=== PATIENT | female | born 1990 | race Two or more races ===

== ENCOUNTER → 2019-03-13 | Outpatient (REF) | payer OTHER ==
[2019-03-13 12:52] LABS: HEMATOCRIT 38.1 % (36.0-47.0); HEMOGLOBIN 12.5 g/dl (12.0-15.5); MEAN CORPUSCULAR HEMOGLOBIN 32.9 pg (27.0-33.0); MEAN CORPUSCULAR HGB CONC 32.8 g/dl (32.0-36.5); MEAN CORPUSCULAR VOLUME 100.3 fl (80.0-96.0); PLATELET COUNT, AUTOMATED 207 10^3/uL (150-450); WHITE BLOOD COUNT 6.3 10^3/uL (4.0-10.0)
[2019-03-13 13:02] LABS: BLOOD UREA NITROGEN 10 MG/DL (7-18); CALCIUM LEVEL 9.4 MG/DL (8.5-10.1); CARBON DIOXIDE LEVEL 32 MEQ/L (21-32); CHLORIDE LEVEL 106 MEQ/L (98-107); CHOLESTEROL LEVEL 149 MG/DL (<200); CREATININE FOR GFR 0.73 MG/DL (0.55-1.30); GLOMERULAR FILTRATION RATE > 60.0 (>60); GLUCOSE, FASTING 82 MG/DL (70-100); HDL CHOLESTEROL 56 MG/DL (>40); LDL CHOLESTEROL 84 MG/DL (<100); NON-HDL-C 93 MG/DL; POTASSIUM SERUM 4.3 MEQ/L (3.5-5.1); SODIUM LEVEL 142 MEQ/L (136-145); TRIGLYCERIDES LEVEL 45 MG/DL (<150)
== END ==
LOC: M SFHCPLAZ 09:46
PROVIDERS: ATTEND Nurse Practitioner Family
DX: Z13.228 Encounter for screening for other metabolic disorders (principal)

== ENCOUNTER → 2019-03-27 | Outpatient (REF) | payer OTHER | LOC: M SFHCPLAZ 15:29 | PROVIDERS: ATTEND Nurse Practitioner Family | DX: Z12.4 Encounter for screening for malignant neoplasm of cervix (principal); N76.0 Acute vaginitis | CPT/HCPCS: G0123; G0463 ==

== ENCOUNTER → 2019-10-25 | Outpatient (CLI) | payer OTHER ==
[2019-10-25 13:36] LABS: BASO % 0.2 % (0.0-1.0); EOS # 0.2 10^3/uL (0.0-0.5); EOS % 2.6 % (0.0-3.0); HEMATOCRIT 40.2 % (36.0-47.0); HEMOGLOBIN 13.2 g/dl (12.0-15.5); LYMPH % 24.1 % (24.0-44.0); MEAN CORPUSCULAR HGB CONC 32.8 g/dl (32.0-36.5); MEAN CORPUSCULAR VOLUME 97.6 fl (80.0-96.0); MONO # 0.7 10^3/uL (0.0-0.8); MONO % 8.6 % (0.0-5.0); NEUTROPHILS # 5.2 10^3/uL (1.5-8.5); NEUTROPHILS % 64.1 % (36.0-66.0); PLATELET COUNT, AUTOMATED 224 10^3/uL (150-450); RED BLOOD COUNT 4.12 10^6/uL (4.00-5.40); WHITE BLOOD COUNT 8.2 10^3/uL (4.0-10.0)
[2019-10-25 13:46] LABS: ALBUMIN 4.3 GM/DL (3.2-5.2); ALT/SGPT 32 U/L (12-78); BILIRUBIN,TOTAL 0.7 MG/DL (0.2-1.0); BLOOD UREA NITROGEN 12 MG/DL (7-18); CALCIUM LEVEL 9.4 MG/DL (8.5-10.1); CARBON DIOXIDE LEVEL 26 MEQ/L (21-32); CHLORIDE LEVEL 109 MEQ/L (98-107); CREATININE FOR GFR 0.82 MG/DL (0.55-1.30); FREE T4 1.05 NG/DL (0.76-1.46); GLOMERULAR FILTRATION RATE > 60.0 (>60); GLUCOSE, FASTING 85 MG/DL (70-100); SODIUM LEVEL 142 MEQ/L (136-145); THYROID STIMULATING HORMONE 0.773 uIU/ML (0.358-3.740); TOTAL PROTEIN 7.7 GM/DL (6.4-8.2)
== END ==
LOC: M WUC 09:43
PROVIDERS: ATTEND Physician Assistant
DX: R42 Dizziness and giddiness (principal)

== ENCOUNTER → 2020-11-20 | Outpatient (REF) | payer OTHER | LOC: M WUC 18:28 | PROVIDERS: ATTEND Physician Assistant | DX: R30.0 Dysuria (principal) ==

== ENCOUNTER → 2021-01-09 | Outpatient (CLI) | payer OTHER | LOC: M LABSMTC 10:22 | PROVIDERS: ATTEND Anesthesiology | DX: Z01.818 Encounter for other preprocedural examination (principal); Z11.52 Encounter for screening for COVID-19 ==

== ENCOUNTER 2021-01-13 13:25 | Day surgery (SDC) | payer OTHER ==
[~2021-01-13] VITALS: Ht 172.7 cm; Wt 59.8 kg
[~2021-01-13 13:25] MED LIST: LR 1,000 ML IV ONE
[2021-01-13 13:51] LABS: HEMOGLOBIN 14.1 g/dl (12.0-15.5)
[2021-01-13 14:20] LABS: HCG, SERUM QUALITATIVE NEGATIVE (NEGATIVE)
[2021-01-13] MEDS ORDERED: IBUP80TA PO (15:18)
[2021-01-13] MEDS ORDERED: COLA100C5 PO (15:18)
[2021-01-13] MEDS ORDERED: PERC5TAB12 PO (15:18)
[2021-01-13] MEDS ORDERED: propofoL 200 MG/20 ML VIAL As Ordered ONE (15:57)
[2021-01-13] MEDS ORDERED: ROCURONIUM BROMIDE 50 MG/5 ML VIAL As Ordered ONE (15:57)
[2021-01-13] MEDS ORDERED: fentaNYL 250 MCG/5 ML INJECTION (J3010) As Ordered ONE (15:57)
[2021-01-13] MEDS ORDERED: LIDOCAINE 2% 100MG/5ML SDV (FOR ANES.) As Ordered ONE (15:57)
[2021-01-13] MEDS ORDERED: MIDAZOLAM INJ 2MG/2ML VIAL (J2250 PER 1MG) As Ordered ONE (15:58)
[2021-01-13] MEDS ORDERED: BUPIVACAINE HCL 0.25% 30ML VIAL As Ordered ONE (16:38)
[2021-01-13] MEDS ORDERED: SUGAMMADEX SODIUM 500 MG/5 ML VIAL (BRIDION) As Ordered ONE (17:08)
[2021-01-13] MEDS ORDERED: ONDANSETRON 4MG/2ML VIAL As Ordered ONE (17:08)
[2021-01-13] MEDS ORDERED: KETOROLAC 60MG 2ML VIAL As Ordered ONE (17:08)
[2021-01-13] MEDS ORDERED: dexameTHASONE 4 MG/ML 1ML VIAL (J1100 PER 1MG) As Ordered ONE (17:08)
[2021-01-13] MEDS ORDERED: ACETAMINOPHEN 1000MG 100ML IV BTL (OFIRMEV) (J0131 PER 10MG) As Ordered ONE (17:26)
[2021-01-13] MEDS ORDERED: IBUPROFEN 800 MG TAB PO PRN (18:10)
[2021-01-13] MEDS ORDERED: LR 1,000 ML IV SCH (18:10)
[2021-01-13] MEDS ORDERED: METOCLOPRAMIDE INJ 10MG/2ML VIAL (J2765 PER 1) IV PRN (18:10)
[2021-01-13] MEDS ORDERED: oxyCODONE 5MG TAB PO PRN (18:10)
[2021-01-13] MEDS ORDERED: PERCOCET 5MG/325MG TAB PO PRN (18:10)
[2021-01-13] MEDS ORDERED: ONDANSETRON 4MG/2ML VIAL IV PRN (18:10)
[2021-01-13] MEDS ORDERED: fentaNYL 100 MCG/2 ML INJECTION (J3010) IV PRN (18:10)
[2021-01-13] MEDS ORDERED: HYDROMORPHONE HCL 0.5 MG/ 0.5 ML SYRINGE (J1170 PER 1) IV PRN (18:10)
[2021-01-13 19:15] VITALS: BP 115/75
[2021-01-13] MEDS ORDERED: DOCUSATE SODIUM 100MG CAPSULE PO SCH (21:00)
--- NOTE | 2021-01-14 09:28 | RO ---
OPERATIVE NOTE DATE OF OPERATION: 01/13/2021 PREOPERATIVE DIAGNOSIS: Satisfied parity. POSTOPERATIVE DIAGNOSIS: Satisfied parity. PROCEDURE PERFORMED: Laparoscopic bilateral salpingectomy. STAFF SURGEON: Nettie Brown MD LINOTYPE MACHINIST APPRENTICE: residential pest control technician. CLINICAL SERVICE: Gynecology. ANESTHESIA: MATERIAL FORWARDED TO THE LAB FOR EXAMINATION: Bilateral fallopian tubes. INDICATIONS FOR OPERATION: Celia is a 30-year-old G1, P1,0,0,1 who endorsed satisfied parity, desiring permanent sterilization. We discussed all options for contraception in the office and she stated she was 100% sure that she is done with childbearing and desired permanent sterilization. DESCRIPTION OF FINDINGS: Laparoscopic findings included normal appearing uterus, fallopian tubes, ovaries, gallbladder, liver edge, appendix and overall pelvis was normal in appearance. INFECTIION CLASSIFICATION: 2. ESTIMATED BLOOD LOSS: 10 mL. URINE OUTPUT: 300 mL. IV FLUIDS: 1300 mL lactated Ringer's. DESCRIPTION OF PROCEDURE: After obtaining informed consent, the patient was taken to the operating room, general endotracheal anesthesia was established. She was placed in low lithotomy position. Patient was prepped and draped in usual sterile fashion. The patient was placed in Trendelenburg position, Lockhart catheter was placed, bivalve speculum was placed in the vagina and visualization of the cervix was obtained. Anterior lip of the cervix was grasped with single tooth tenaculum. Uterus sounded to 6 cm. Hulka uterine manipulator was placed through the cervix to the uterus and then the tenaculum was removed with site hemostasis noted and the bivalve speculum was removed. The patient was taken out of Trendelenburg position. 5 mm incision was made in the infraumbilical fold beneath the subcutaneous tissue after anesthetizing with 0.25% Marcaine. Corazon clamp was used to spread the subcutaneous tissue. Lower abdominal wall was manually grabbed and lifted up. Optiview trocar was placed at 90 degree angle. Laparoscope was advanced through the port and intraabdominal placement was confirmed without injury noted below the point of entry. Continuous flow CO2 began to establish pneumoperitoneum at 15 mmHg pressure. At that point I placed two more trocars, both on the right side in the right lower quadrant and upper right quadrant, both 5 mm in size and after anesthetizing with 0.25% Marcaine 5 mm trocars were placed under direct visualization. Pelvic and abdominal surveys were conducted beginning at anterior cul-de-sac, anterior portion of the uterus which were normal in appearance. Left and right fallopian tubes, round ligaments, broad ligaments, and ovaries were observed and normal appearance. Posterior cul-de-sac was observed to be normal as well as ovarian fossae. Survey of the upper abdomen revealed normal appearing appendix, liver edge and gallbladder. At that point the salpingectomy was performed first on the right side followed by the left in same manner. The LigaSure device was used to excise the fallopian tubes, undermining them very close beneath the fallopian tubes with conscientious distance away from the ovaries so as to not interrupt blood supply to the ovary. Once they were excised they were removed from the body out of the trocar in total and the pelvis was observed. Laparoscopic photos were taken. There was no bleeding noted and at that point the right trocars were removed with direct visualization. They were observed to be hemostatic. The pneumoperitoneum was released prior to removal of the umbilical ports. Incisions were reapproximated with 4-0 Monocryl and Dermabond. All instruments were removed from the vagina and hemostasis was noted. The patient was returned to the supine position. All counts were correct x2. The patient tolerated the procedure well and was awakened from general anesthesia and taken to the recovery room in stable condition.
== END 2021-01-13 19:20 | disposition home or self-care (01) ==
LOC: M SDC 13:25
PROVIDERS: ATTEND Obstetrics & Gynecology
DX: Z30.2 Encounter for sterilization (principal); Z86.16 Personal history of COVID-19; Z88.2 Allergy status to sulfonamides
CPT/HCPCS: 36415; 58661; 84703; 85014; 85018; 86850; 86900; 86901; 88302; J0131; J1100; J1885; J2250; J2405; J3010

== ENCOUNTER → 2021-05-03 | Outpatient (CLI) | payer OTHER ==
[~2021-05-03] MED LIST changes: +COLA100C5 PO; +IBUP80TA PO; -LR 1,000 ML IV ONE; +PERC5TAB12 PO
--- NOTE | 2021-05-04 16:15 | REP ---
INDICATION: FIBROCYSTIC CHANGES OF LEFT BREAST. COMPARISON: None TECHNIQUE: Real-time sonographic evaluation of left breast performed. FINDINGS: In the region of firmness between 12 and 3 o'clock of the left breast no cystic or solid nodule is seen. Incidental note is made of a lobulated hypoechoic structure at 5 o'clock measuring 12 x 7 x 14 mm, KP a value 25.4. This is approximately 3.5 cm from the nipple. At 6 o'clock there is a 4 x 3 x 5 mm hypoechoic nodule, average KP a value 40, 4 cm from the nipple. IMPRESSION: BIRADS/ACR category 4, suspicious. Two hypoechoic nodules identified at the 5 o'clock and 6 o'clock positions. Recommend ultrasound-guided biopsy. RECOMMENDATION: Ultrasound-guided biopsy recommended at 2 sites in the left breast.. <Electronically signed by Trenton Maldonado > 05/04/21 [id number]
== END ==
LOC: M WHC 13:24
PROVIDERS: ATTEND Family Medicine
DX: N60.12 Diffuse cystic mastopathy of left breast (principal); N63.20 Unspecified lump in the left breast, unspecified quadrant

== ENCOUNTER → 2021-05-23 | Outpatient (CLI) | payer OTHER | LOC: M WHCPRO 11:06 | PROVIDERS: ATTEND Family Medicine | DX: R92.8 Other abnormal and inconclusive findings on diagnostic imaging of breast (principal); Z53.8 Procedure and treatment not carried out for other reasons ==

== ENCOUNTER → 2021-06-08 | Outpatient (CLI) | payer OTHER ==
[2021-06-08 15:45] VITALS: BP 104/76
--- NOTE | 2021-06-08 15:54 | REP ---
INDICATION: 2 ABNORMAL NODULES ON LEFT BREAST U/S. COMPARISON: Ultrasound 05/03/2021. TECHNIQUE: ML and CC views left breast. FINDINGS: Following ultrasound-guided biopsy of 2 lesions in the left breast, imaging shows 2 biopsy marking clips in the lower inner left breast. IMPRESSION: Ultrasound-guided biopsy of 2 lesions in the left breast with marker clip placement. RECOMMENDATION: Clinical follow-up. <Electronically signed by Trenton Maldonado > 06/08/21 [id number]
--- NOTE | 2021-06-08 18:33 | REP ---
INDICATION: 2 ABNORMAL NODULES ON LEFT BREAST. COMPARISON: None. TECHNIQUE: The procedure was performed by ANGEL LUIS Myles, under the direct supervision of Dr. Maldonado. The risks and benefits of the procedure were explained to the patient and an informed consent was obtained both verbally and written. Directly prior to the start of the procedure a formal time-out was completed in the procedure room. FINDINGS: The left breast mass at 5 o'clock position was localized using ultrasound guidance.. The skin was prepped and draped in a sterile fashion. Ten mL of buffered lidocaine was used as a local anesthetic. Using ultrasound guidance a 14 gauge Bard marquee needle biopsy system was inserted and advanced into the left breast mass at 5 o'clock position. Five core biopsy specimens were obtained. A shaped 3 marker clip was placed at the biopsy site. The left breast mass at 6 o'clock position was localized using ultrasound guidance.. The skin was prepped and draped in a sterile fashion. Ten ML of buffered lidocaine was used as a local anesthetic. Using ultrasound guidance a 14 gauge Bard marquee needle biopsy system was inserted and advanced into the left breast mass at 6 o'clock position. Five core biopsy specimens were obtained. A shaped 4 marker clip was placed at the biopsy site. The patient tolerated the procedure well and there were no immediate complications. After the appropriate amount of monitored convalescence the patient was discharged from the department. IMPRESSION: Ultrasound-guided biopsy and micro clip placement of the left breast x2. <Electronically signed by Mary Mcgill > 06/08/21 [id number] <Electronically signed by Trenton Maldnoado > 06/08/21 [id number]
== END ==
LOC: M WHCPRO 13:48
PROVIDERS: ATTEND Family Medicine
DX: R92.8 Other abnormal and inconclusive findings on diagnostic imaging of breast (principal)
CPT/HCPCS: 19083; 19084; 77065; 88305; G0279

== ENCOUNTER 2022-02-28 08:15 | Inpatient (IN) | payer OTHER ==
[~2022-02-28] VITALS: Ht 170.2 cm; Wt 64.1 kg
[2022-02-28] MEDS ORDERED: ACETAMINOPHEN 500 MG TAB PO ONE (08:40)
[2022-02-28] MEDS ORDERED: ONDANSETRON 4MG ORAL DISINTEGRATING TAB PO ONE (08:40)
[2022-02-28] MEDS ORDERED: IBUPROFEN 800 MG TAB PO ONE (09:35)
[2022-02-28] MEDS ORDERED: NS 1,000 ML IV ONE ×2 (09:35→10:45)
[2022-02-28 09:55] LABS: BASO % 0.2 % (0.0-1.0); HEMATOCRIT 33.8 % (36.0-47.0); HEMOGLOBIN 11.6 g/dl (12.0-15.5); LYMPH # 0.6 10^3/uL (1.5-5.0); LYMPH % 3.3 % (24.0-44.0); MEAN CORPUSCULAR HEMOGLOBIN 32.4 pg (27.0-33.0); MEAN CORPUSCULAR HGB CONC 34.3 g/dl (32.0-36.5); MEAN CORPUSCULAR VOLUME 94.4 fl (80.0-96.0); MONO % 9.3 % (2.0-8.0); NEUTROPHILS # 15.4 10^3/uL (1.5-8.5); NEUTROPHILS % 86.4 % (36.0-66.0); PLATELET COUNT, AUTOMATED 186 10^3/uL (150-450); RED BLOOD COUNT 3.58 10^6/uL (4.00-5.40); WHITE BLOOD COUNT 17.8 10^3/uL (4.0-10.0)
[2022-02-28 10:07] LABS: BACTERIA, URINE LARGE AMOUNT; RBC, URINE TNTC /hpf (0-3); SQUAMOUS EPITHELIAL CELL URINE LARGE AMOUNT /hpf (SMALL AMT)
[2022-02-28] MEDS ORDERED: cefTRIAXone SOD 1 GM in D5W MINI-BAG PLUS 50 ML IV ONE (10:20)
[2022-02-28 10:31] LABS: ALBUMIN 3.5 GM/DL (3.2-5.2); ALT/SGPT 18 U/L (12-78); BILIRUBIN,DIRECT 0.4 MG/DL (0.0-0.2); BILIRUBIN,TOTAL 1.1 MG/DL (0.2-1.0); BLOOD UREA NITROGEN 9 MG/DL (7-18); CALCIUM LEVEL 9.3 MG/DL (8.5-10.1); CARBON DIOXIDE LEVEL 22 MEQ/L (21-32); CHLORIDE LEVEL 103 MEQ/L (98-107); CREATININE FOR GFR 0.71 MG/DL (0.55-1.30); GLOMERULAR FILTRATION RATE > 60.0 (>60); GLUCOSE, FASTING 99 MG/DL (70-100); LIPASE 159 U/L (73-393); POTASSIUM SERUM 3.1 MEQ/L (3.5-5.1); SODIUM LEVEL 134 MEQ/L (136-145); TOTAL PROTEIN 6.9 GM/DL (6.4-8.2)
[2022-02-28 10:32] LABS: MONO # 1.7 10^3/uL (0.0-0.8)
[2022-02-28] MEDS ORDERED: ISOVUE-370 76% 100ML VIAL As Ordered ONE (10:43)
[2022-02-28] MEDS ORDERED: ONDANSETRON 4MG 2ML VIAL IV PRN (12:35)
[2022-02-28] MEDS ORDERED: HOME MED LIST COMPLETE! XX SCH (13:45)
[2022-02-28 15:13] VITALS: BP 109/73
[2022-02-28] MEDS: ACETAMINOPHEN TAB 650MG DOSE (2X325MG) PO PRN (17:22)
[2022-02-28] MEDS: NS 1,000 ML IV SCH (17:23)
[2022-02-28] MEDS: IBUPROFEN 800 MG TAB PO PRN (19:00)
[2022-02-28 20:00] VITALS: BP 105/67
[2022-02-28] MEDS: OMEPRAZOLE 20MG CAP PO SCH (20:09)
[2022-02-28] MEDS ORDERED: POTASSIUM CHLORIDE 10MEQ SR TABLET PO ONE (22:00)
[2022-03-01] MEDS: IBUPROFEN 800 MG TAB PO PRN ×3 (03:17→21:11)
[2022-03-01] MEDS: ACETAMINOPHEN TAB 650MG DOSE (2X325MG) PO PRN ×3 (04:18→20:01)
[2022-03-01] MEDS: NS 1,000 ML IV SCH ×2 (04:57→19:07)
[2022-03-01 05:00] VITALS: BP 106/67
[2022-03-01 06:32] LABS: HEMATOCRIT 30.3 % (36.0-47.0); MEAN CORPUSCULAR HEMOGLOBIN 32.3 pg (27.0-33.0); MEAN CORPUSCULAR VOLUME 97.7 fl (80.0-96.0); PLATELET COUNT, AUTOMATED 161 10^3/uL (150-450); WHITE BLOOD COUNT 17.2 10^3/uL (4.0-10.0)
[2022-03-01 07:17] LABS: BLOOD UREA NITROGEN 7 MG/DL (7-18); CALCIUM LEVEL 8.4 MG/DL (8.5-10.1); CARBON DIOXIDE LEVEL 21 MEQ/L (21-32); CHLORIDE LEVEL 109 MEQ/L (98-107); CREATININE FOR GFR 0.56 MG/DL (0.55-1.30); GLOMERULAR FILTRATION RATE > 60.0 (>60); GLUCOSE, FASTING 78 MG/DL (70-100); MAGNESIUM LEVEL 1.9 MG/DL (1.8-2.4); POTASSIUM SERUM 3.4 MEQ/L (3.5-5.1); SODIUM LEVEL 139 MEQ/L (136-145)
[2022-03-01] MEDS ORDERED: POTASSIUM CHLORIDE 10MEQ SR TABLET PO ONE (08:00)
[2022-03-01 08:07] LABS: ANISOCYTOSIS 1+; LYMPHOCYTES 7 % (16-44); MONOCYTES 3 % (0-5); NEUTROPHILS 78 % (28-66); PLATELET ESTIMATE NORMAL (NORMAL)
[2022-03-01] MEDS: cefTRIAXone SOD 1 GM in D5W MINI-BAG PLUS 50 ML IV SCH (11:36)
[2022-03-01 14:00] VITALS: BP 107/69
[2022-03-01] MEDS ORDERED: oxyCODONE 5MG TAB PO ONE (14:45)
[2022-03-01] MEDS: OMEPRAZOLE 20MG CAP PO SCH (20:01)
[2022-03-01 20:04] VITALS: BP 116/77
[2022-03-02] MEDS: ACETAMINOPHEN TAB 650MG DOSE (2X325MG) PO PRN ×3 (03:21→22:26)
[2022-03-02 05:34] VITALS: BP 103/66
[2022-03-02] MEDS: IBUPROFEN 800 MG TAB PO PRN ×3 (05:37→21:12)
[2022-03-02 07:05] LABS: HEMATOCRIT 30.5 % (36.0-47.0); HEMOGLOBIN 10.3 g/dl (12.0-15.5); MEAN CORPUSCULAR HEMOGLOBIN 32.9 pg (27.0-33.0); MEAN CORPUSCULAR HGB CONC 33.8 g/dl (32.0-36.5); MEAN CORPUSCULAR VOLUME 97.4 fl (80.0-96.0); PLATELET COUNT, AUTOMATED 161 10^3/uL (150-450); RED BLOOD COUNT 3.13 10^6/uL (4.00-5.40); WHITE BLOOD COUNT 14.6 10^3/uL (4.0-10.0)
[2022-03-02 07:42] LABS: BLOOD UREA NITROGEN 3 MG/DL (7-18); CALCIUM LEVEL 8.4 MG/DL (8.5-10.1); CARBON DIOXIDE LEVEL 24 MEQ/L (21-32); CHLORIDE LEVEL 107 MEQ/L (98-107); CREATININE FOR GFR 0.49 MG/DL (0.55-1.30); GLOMERULAR FILTRATION RATE > 60.0 (>60); GLUCOSE, FASTING 82 MG/DL (70-100); POTASSIUM SERUM 3.4 MEQ/L (3.5-5.1); SODIUM LEVEL 137 MEQ/L (136-145)
[2022-03-02 08:13] LABS: ATYPICAL LYMPH 1 % (0-5); EOSINOPHILS 1 % (0-3); LYMPHOCYTES 10 % (16-44); MONOCYTES 4 % (0-5); NEUTROPHILS 74 % (28-66)
[2022-03-02 08:16] LABS: ANISOCYTOSIS 1+; PLATELET ESTIMATE NORMAL (NORMAL)
[2022-03-02] MEDS: NS 1,000 ML IV SCH (08:41)
[2022-03-02 10:00] VITALS: BP 103/68
[2022-03-02] MEDS ORDERED: POTASSIUM CHLORIDE 10MEQ SR TABLET PO ONE (11:00)
[2022-03-02] MEDS: cefTRIAXone SOD 1 GM in D5W MINI-BAG PLUS 50 ML IV SCH (11:19)
[2022-03-02 14:00] VITALS: BP 106/62
[2022-03-02 18:00] VITALS: BP 110/68
[2022-03-02 20:00] VITALS: BP 122/78
[2022-03-02] MEDS: OMEPRAZOLE 20MG CAP PO SCH (21:12)
[2022-03-03 06:00] VITALS: BP 118/77
[2022-03-03 06:58] LABS: BASO % 0.2 % (0.0-1.0); EOS % 0.3 % (0.0-3.0); HEMATOCRIT 32.8 % (36.0-47.0); LYMPH % 8.5 % (24.0-44.0); MEAN CORPUSCULAR HEMOGLOBIN 32.4 pg (27.0-33.0); MEAN CORPUSCULAR HGB CONC 33.5 g/dl (32.0-36.5); MEAN CORPUSCULAR VOLUME 96.8 fl (80.0-96.0); MONO % 13.4 % (2.0-8.0); NEUTROPHILS # 8.8 10^3/uL (1.5-8.5); NEUTROPHILS % 77.1 % (36.0-66.0); PLATELET COUNT, AUTOMATED 209 10^3/uL (150-450); RED BLOOD COUNT 3.39 10^6/uL (4.00-5.40); WHITE BLOOD COUNT 11.4 10^3/uL (4.0-10.0)
[2022-03-03 07:28] LABS: BLOOD UREA NITROGEN 5 MG/DL (7-18); CALCIUM LEVEL 9.1 MG/DL (8.5-10.1); CARBON DIOXIDE LEVEL 25 MEQ/L (21-32); CHLORIDE LEVEL 105 MEQ/L (98-107); CREATININE FOR GFR 0.56 MG/DL (0.55-1.30); GLOMERULAR FILTRATION RATE > 60.0 (>60); GLUCOSE, FASTING 80 MG/DL (70-100); POTASSIUM SERUM 3.5 MEQ/L (3.5-5.1); SODIUM LEVEL 137 MEQ/L (136-145)
[2022-03-03 07:29] LABS: MONO # 1.5 10^3/uL (0.0-0.8)
[2022-03-03] MEDS: ACETAMINOPHEN TAB 650MG DOSE (2X325MG) PO PRN (08:03)
[2022-03-03 09:30] VITALS: BP 105/64
[2022-03-03] MEDS: cefTRIAXone SOD 1 GM in D5W MINI-BAG PLUS 50 ML IV SCH (11:31)
[2022-03-03 14:00] VITALS: BP 118/71
[2022-03-03] MEDS: IBUPROFEN 800 MG TAB PO PRN (17:01)
[2022-03-03 19:35] VITALS: BP 116/71
[2022-03-03] MEDS: OMEPRAZOLE 20MG CAP PO SCH (19:56)
[2022-03-04 05:44] VITALS: BP 111/71
[2022-03-04 07:14] LABS: BASO % 0.2 % (0.0-1.0); EOS # 0.1 10^3/uL (0.0-0.5); HEMATOCRIT 33.1 % (36.0-47.0); LYMPH # 1.1 10^3/uL (1.5-5.0); LYMPH % 13.4 % (24.0-44.0); MEAN CORPUSCULAR HEMOGLOBIN 31.5 pg (27.0-33.0); MEAN CORPUSCULAR HGB CONC 33.2 g/dl (32.0-36.5); MEAN CORPUSCULAR VOLUME 94.8 fl (80.0-96.0); MONO # 1.4 10^3/uL (0.0-0.8); MONO % 17.6 % (2.0-8.0); NEUTROPHILS # 5.5 10^3/uL (1.5-8.5); NEUTROPHILS % 66.9 % (36.0-66.0); PLATELET COUNT, AUTOMATED 233 10^3/uL (150-450); RED BLOOD COUNT 3.49 10^6/uL (4.00-5.40); WHITE BLOOD COUNT 8.2 10^3/uL (4.0-10.0)
[2022-03-04 07:48] LABS: BLOOD UREA NITROGEN 6 MG/DL (7-18); CALCIUM LEVEL 9.2 MG/DL (8.5-10.1); CARBON DIOXIDE LEVEL 27 MEQ/L (21-32); CHLORIDE LEVEL 103 MEQ/L (98-107); CREATININE FOR GFR 0.56 MG/DL (0.55-1.30); GLOMERULAR FILTRATION RATE > 60.0 (>60); GLUCOSE, FASTING 86 MG/DL (70-100); POTASSIUM SERUM 3.6 MEQ/L (3.5-5.1); SODIUM LEVEL 137 MEQ/L (136-145)
[2022-03-04] MEDS: cefTRIAXone SOD 1 GM in D5W MINI-BAG PLUS 50 ML IV SCH (12:05)
[2022-03-04 14:00] VITALS: BP 110/70
[2022-03-04] MEDS: OMEPRAZOLE 20MG CAP PO SCH (20:33)
[2022-03-04 21:00] VITALS: BP 110/71
[2022-03-05 06:00] VITALS: BP 111/68
[2022-03-05 06:14] LABS: BASO # 0.1 10^3/uL (0.0-0.2); BASO % 0.8 % (0.0-1.0); EOS # 0.1 10^3/uL (0.0-0.5); HEMATOCRIT 33.1 % (36.0-47.0); LYMPH # 1.5 10^3/uL (1.5-5.0); LYMPH % 22.9 % (24.0-44.0); MEAN CORPUSCULAR HEMOGLOBIN 32.3 pg (27.0-33.0); MEAN CORPUSCULAR HGB CONC 33.2 g/dl (32.0-36.5); MEAN CORPUSCULAR VOLUME 97.1 fl (80.0-96.0); MONO # 1.1 10^3/uL (0.0-0.8); MONO % 16.2 % (2.0-8.0); NEUTROPHILS # 3.8 10^3/uL (1.5-8.5); NEUTROPHILS % 56.3 % (36.0-66.0); PLATELET COUNT, AUTOMATED 281 10^3/uL (150-450); RED BLOOD COUNT 3.41 10^6/uL (4.00-5.40); WHITE BLOOD COUNT 6.7 10^3/uL (4.0-10.0)
[2022-03-05 06:51] LABS: BLOOD UREA NITROGEN 8 MG/DL (7-18); C REACTIVE PROTEIN QUANTITATIV 8.01 MG/DL (0.00-0.30); CALCIUM LEVEL 9.5 MG/DL (8.5-10.1); CARBON DIOXIDE LEVEL 26 MEQ/L (21-32); CHLORIDE LEVEL 106 MEQ/L (98-107); CREATININE FOR GFR 0.59 MG/DL (0.55-1.30); GLOMERULAR FILTRATION RATE > 60.0 (>60); GLUCOSE, FASTING 88 MG/DL (70-100); POTASSIUM SERUM 3.9 MEQ/L (3.5-5.1); SODIUM LEVEL 138 MEQ/L (136-145)
[2022-03-05] MEDS ORDERED: CEFD300CAP PO (07:31)
[2022-03-05] MEDS ORDERED: PROBCAP14 PO (07:31)
== END 2022-03-05 10:40 | disposition home or self-care (01) | DRG 872 ==
LOC: M ED 08:15 → M ED INP 12:35 → ENRESERV 14:31 → M MSPAV 15:11
PROVIDERS: ADMIT Internal Medicine Nephrology; ATTEND Internal Medicine Nephrology
DX: A41.9 Sepsis, unspecified organism (principal); N10 Acute pyelonephritis; K76.89 Other specified diseases of liver; N28.89 Other specified disorders of kidney and ureter; Z88.2 Allergy status to sulfonamides; Z86.16 Personal history of COVID-19; Z87.440 Personal history of urinary (tract) infections; B96.20 Unspecified Escherichia coli [E. coli] as the cause of diseases classified elsewhere

== ENCOUNTER → 2022-04-13 | Outpatient (REF) | payer OTHER ==
[~2022-04-13] MED LIST changes: +CEFD300CAP PO; +PROBCAP14 PO
== END ==
LOC: M WUC 19:20
PROVIDERS: ATTEND Physician Assistant
DX: R30.0 Dysuria (principal)

== ENCOUNTER → 2022-07-12 | Outpatient (REF) | payer OTHER | LOC: M LAB REF 18:47 | PROVIDERS: ATTEND Physician Assistant | DX: R30.0 Dysuria (principal) ==